=== PATIENT | male | born 1970 | race Caucasian/White ===

== ENCOUNTER 2019-03-08 09:29 | Outpatient (CLI) | payer MEDICARE ==
[2019-03-08] MEDS ORDERED: GADOBUTROL 10 MMOL/10 ML VIAL ONE (10:30)
[2019-03-08] MEDS ORDERED: GADOBUTROL 10 MMOL/10 ML VIAL IVP ONE (11:02)
--- NOTE | 2019-03-08 13:35 | MRI Report ---
Reason: TRIGEMINAL NEURALGIA Procedure Date: 03/08/2019 Accession Number: [id number] / [id number] Procedure: MRI - Brain W/WO CPT Code: FULL RESULT: EXAM: MRI BRAIN WITHOUT AND WITH CONTRAST EXAM DATE: 03/08/2019 11:15 AM. CLINICAL HISTORY: Trigeminal neuralgia. COMPARISON: None. TECHNIQUE: Multiplanar, multisequence T1-weighted and fluid-sensitive MR sequences of the brain were performed. Sequences optimized for posterior fossa evaluation. Other: None. IV Contrast: 10 mL Gadavist. FINDINGS: Brain Volume: Normal for age. Parenchyma: No acute hemorrhage, mass, or infarct. No white matter lesions identified. No abnormal enhancement. Ventricles/Cisterns: No hydrocephalus. No abnormal extra-axial fluid collection or hemorrhage. Orbits: Symmetric and unremarkable. Sella Turcica: The pituitary gland, cavernous sinuses, suprasellar cistern and optic chiasm are unremarkable. IAC: Normal findings in the regions of the internal auditory canals. Normal contours of the cisternal and canalicular segments of the 7th and 8th cranial nerves. No abnormal enhancement. No abnormal enhancement or mass associated with the Meckel's caves, cavernous sinuses or cisternal segments of the trigeminal nerves. No evidence for direct impingement or deformity of the trigeminal nerves or brainstem. There is a dominant blood vessel in the lateral left prepontine cistern that is in very close proximity, however, to the left trigeminal nerve but without overt mass effect on the nerve or adjacent brainstem. Reference images 55 through 60 from series 901. No clear evidence for right trigeminal nerve vascular loop impingement. Vasculature: Normal signal flow void is seen in the major arterial structures at the skull base. The dural sinuses are patent and enhance normally. Sinuses: Pansinus mucosal thickening. This is especially prominent in the left maxillary sinus and also the left ethmoid and sphenoid sinuses. Clear mastoids. Bones: No focal pathologic appearing marrow signal changes. Other: None. IMPRESSION: 1. Unremarkable appearance of the brain. No acute intracranial abnormality or enhancing mass. 2. Sinusitis. 3. Unremarkable findings in the regions of the internal auditory canals. 4. No posterior fossa enhancing or space-occupying mass. 5. Vascular loop is close to the posterior lateral left trigeminal nerve cisternal segment but without evidence for mass effect on the nerve or adjacent brainstem. RADIA
== END 2019-03-08 09:30 | disposition home or self-care (01) ==
LOC: DI 09:29
PROVIDERS: ATTEND Nurse Practitioner Family
DX: G50.0 Trigeminal neuralgia (principal); J32.9 Chronic sinusitis, unspecified
CPT/HCPCS: 70553; A9585

== ENCOUNTER 2023-01-09 13:22 | Outpatient (CLI) | payer MEDICARE, OTHER ==
--- NOTE | 2023-01-09 16:20 | MRI Report ---
PROCEDURE: SHOULDER WO - LT INDICATIONS: LEFT SHOULDER PAIN TECHNIQUE: Noncontrast oblique coronal T2 fast spin echo with fat saturation, oblique sagittal T1 spin echo and T2 fast spin echo with fat saturation, axial T1 spin echo and T2 fast spin echo with fat saturation a nd 3-D gradient echo through the shoulder. COMPARISON: None. FINDINGS: Image quality: Excellent. Rotator cuff: Moderate supraspinatus and infraspinatus tendinosis with multiple small foci of low-gra de partial intrasubstance tearing at the distal insertions. Teres minor tendon is intact. There is mo derate subscapularis tendinosis. No significant rotator cuff muscle atrophy is seen. Bones and bursae: No acute trabecular bone injury or fracture. Chronic traction cystic changes are s een in the posterosuperior humeral head. There is diffuse full-thickness cartilage loss throughout th e glenohumeral joint. Mild subchondral cystic changes are present. There is mild posterior subluxatio n of the humeral head relative to the glenoid. Remodeling of the articular surface is seen resulting in less than 5 degrees glenoid retroversion relative to the midplane of the scapula at the mid glenoi d level. Moderate to severe degenerative changes are seen at the acromioclavicular joint with subchon dral cystic changes and marginal osteophyte formation. There is trace subacromial/subdeltoid bursal f luid. A moderate glenohumeral joint effusion is seen with mild synovial hypertrophy and multiple intr a-articular loose bodies. The largest loose bodies are located in the biceps tendon sheath measuring up to 13 mm in greatest dimension. Capsule and soft tissues: There is diffuse labral degeneration and chronic degenerative tearing. Mild to moderate tendinosis of the proximal biceps long head tendon is noted. There is partial effacement of the normal fat signal in the rotator outlet. Glenohumeral ligaments are intact. IMPRESSION: 1.Severe glenohumeral osteoarthrosis with diffuse full-thickness cartilage loss, and bulky marginal o steophytes, and remodeling of the articular surfaces resulting in less than 5 degrees of glenoid retr oversion. 2.Moderate to severe acromioclavicular joint osteoarthrosis. 3.Moderate diffuse rotator cuff tendinosis. Multiple small foci of low-grade partial intrasubstance t earing are seen at the distal supraspinatus and infraspinatus insertions. 4.Mild to moderate biceps long head tendinosis. 5.Moderate glenohumeral effusion with mild synovial hypertrophy and multiple intra-articular ossified loose bodies. Reviewed by: Yuri Matias MD on 01/09/2023 4:19 PM PDT Approved by: Yuri Matias MD on 01/09/2023 4:19 PM PDT Station ID: [id number]
== END 2023-01-09 13:23 | disposition home or self-care (01) ==
LOC: DI 13:22
PROVIDERS: ATTEND Family Medicine
DX: M19.012 Primary osteoarthritis, left shoulder (principal); M94.212 Chondromalacia, left shoulder; M25.712 Osteophyte, left shoulder; M75.92 Shoulder lesion, unspecified, left shoulder; M25.412 Effusion, left shoulder; M67.212 Synovial hypertrophy, not elsewhere classified, left shoulder; M24.012 Loose body in left shoulder